=== PATIENT | male | born 1965 | race Caucasian/White ===

== ENCOUNTER 2019-11-01 06:46 | Emergency (ER) | payer OTHER ==
[~2019-11-01] VITALS: Ht 182.9 cm; Wt 74.8 kg
[2019-11-01] MEDS ORDERED: ACETAMINOPHEN ES 500 MG TABLET ONE (07:21)
[2019-11-01] MEDS ORDERED: IBUPROFEN 600 MG TABLET PO ONE (07:21)
[2019-11-01] MEDS: IBUPROFEN 600 MG TABLET PO ONE ×2 (07:24→07:25)
[2019-11-01] MEDS: ACETAMINOPHEN ES 500 MG TABLET PO ONE ×2 (07:24→07:25)
--- NOTE | 2019-11-01 07:30 | NUR ---
patient came in to the er c/o body aches, fever x 4 days, on room air, breathing evenly and unlabored. connected to the monitor and pulse ox. kept comfortable, will continue to monitor accordingly.
[2019-11-01 09:30] VITALS: BP 118/65
--- NOTE | 2019-11-01 09:31 | NUR ---
Patient discharged to home in stable condition. Written and verbal after care instructions given. Patient verbalizes understanding of instruction.
== END 2019-11-01 09:30 | disposition home or self-care (01) ==
LOC: ER 06:46
DX: B34.9 Viral infection, unspecified (principal); Z98.890 Other specified postprocedural states

== ENCOUNTER 2019-11-04 07:06 | Emergency (ER) | payer OTHER ==
[~2019-11-04] VITALS: Ht 182.9 cm; Wt 73.5 kg
[2019-11-04 07:16] VITALS: BP 132/79
[2019-11-04] MEDS ORDERED: IV NS 0.9% 1,000 ML BAG IV ONE (07:30)
[2019-11-04] MEDS ORDERED: ONDANSETRON HCL/PF 4 MG/2 ML VIAL IVP ONE (07:30)
[2019-11-04 07:43] LABS: BASOPHILS # (AUTO) 0.1 /CMM (0.0-0.2); BASOPHILS % (AUTO) 2.5 % (0.0-2.0); EOSINOPHILS % (AUTO) 0.1 % (0.0-6.0); HEMATOCRIT 44 % (39-51); HEMOGLOBIN 15.2 g/dL (13.5-17.5); LYMPHOCYTES # (AUTO) 0.9 /CMM (0.8-4.8); LYMPHOCYTES % (AUTO) 17.1 % (20.0-44.0); MEAN CORPUSCULAR HGB CONC 35 g/dl (31.0-36.0); MEAN CORPUSCULAR VOLUME 87 fL (80-96); MONOCYTES # (AUTO) 0.3 /CMM (0.1-1.30); MONOCYTES % (AUTO) 6.2 % (2.0-12.0); NEUTROPHILS # (AUTO) 3.9 /CMM (1.8-8.9); NEUTROPHILS % (AUTO) 74.1 % (43.0-81.0); PLATELET COUNT (AUTO) 178 /CMM (150-450); RED BLOOD CELL COUNT(AUTO) 4.99 MIL/uL (4.5-6.0); WHITE BLOOD COUNT (AUTO) 5.2 K/uL (4.3-11.0)
[2019-11-04 07:51] LABS: CALCIUM, SERUM 8.6 mg/dL (8.5-10.1); CREATININE 1.1 mg/dL (0.6-1.3); POTASSIUM 3.9 mmol/L (3.5-5.1)
[2019-11-04] MEDS ORDERED: ONDANSETRON HCL/PF 4 MG/2 ML VIAL ONE (08:32)
[2019-11-04] MEDS ORDERED: ACETAMINOPHEN 325 MG TABLET ONE (09:19)
[2019-11-04] MEDS ORDERED: ACETAMINOPHEN 650 MG/20.3 ML UDC PO ONE (09:30)
== END 2019-11-04 10:03 | disposition home or self-care (01) ==
LOC: ER 07:06
DX: J06.9 Acute upper respiratory infection, unspecified (principal); R11.2 Nausea with vomiting, unspecified; Z98.890 Other specified postprocedural states
CPT/HCPCS: 36415; 71045; 80048; 85025; 96361; 96374; 99284; J2405; J7030

== ENCOUNTER 2022-07-14 12:33 | Emergency (ER) | payer OTHER ==
[~2022-07-14] VITALS: Ht 180.3 cm; Wt 74.8 kg
[2022-07-14 12:33] VITALS: BP 131/77
[2022-07-14] MEDS ORDERED: LIDOCAINE 1% INJ 50 ML MDV IJ ONE (14:00)
[2022-07-14] MEDS ORDERED: CEPH500C2 PO (14:52)
[2022-07-14] MEDS ORDERED: SULF1TAB48 PO (14:52)
--- NOTE | 2022-07-14 15:00 | NUR ---
INCISION AND DRANAIGE DONE. WOUND CARE PROVIDED. D/C IN STABLE CONDITION.
== END 2022-07-14 15:21 | disposition home or self-care (01) ==
LOC: ER 12:40
DX: L03.012 Cellulitis of left finger (principal)
CPT/HCPCS: 99283; 10060; A6403